=== PATIENT | male | born 1965 | race African-American/Black ===

== ENCOUNTER 2017-01-21 09:10 | Emergency (ER) | payer MEDICAID, OTHER ==
[~2017-01-21] VITALS: Ht 180.3 cm; Wt 99.0 kg
[2017-01-21 10:38] LABS: HEMATOCRIT. 35.5 % (42.0-52.0); HEMOGLOBIN. 10.6 g/dL (14.0-18.0); MEAN CORPUSCULAR HEMOGLOBIN 24.4 pg (28.0-32.0); MEAN CORPUSCULAR HGB CONC 29.9 g/dL (31.0-37.0); MEAN CORPUSCULAR VOLUME 81.7 fL (80.0-94.0); MEAN PLATELET VOLUME 7.6 fl (7.4-10.4); PLATELET 328 x1000/uL (130-400); RED BLOOD CELL COUNT 4.35 mill/uL (4.7-6.1); RED CELL DISTRIBUTION WIDTH 17.3 % (11.6-14.6)
[2017-01-21 10:42] LABS: DIFFERENTIAL COMMENT 1
[2017-01-21 10:51] LABS: ACETAMINOPHEN < 2 ug/mL (10-30); ALANINE AMINOTRANSFERASE 234 IU/L (13-61); ALBUMIN 3.9 g/dL (3.4-5.0); ANION GAP 20; CALCIUM 8.7 mg/dL (8.5-10.1); CARBON DIOXIDE 22 mEq/L (21-32); CHLORIDE 106 mEq/L (98-107); ETHANOL BLOOD < 10 mg/dL; INDEX HEMOLYSI 1 (1-3); INDEX ICTERIC 1 (1-4); INDEX LIPEMIC 1 (1-3); UREA NITROGEN BLOOD 18 mg/dL (7-21); eGFR > 60 mL/min (>60)
[2017-01-21 11:00] LABS: PLATELET ESTIMATE NORMAL
[2017-01-21 11:02] LABS: ANISOCYTOSIS 2+; HYPOCHROMASIA 1+
[2017-01-21 13:53] LABS: CLARITY URINE CLEAR (CLEAR); COLOR URINE YELLOW (YELLOW); GLUCOSE URINE 2+ (NEGATIVE); KETONES URINE NEGATIVE (NEGATIVE); LEUKOCYTE ESTERASE URINE NEGATIVE (NEGATIVE); NITRITE URINE NEGATIVE (NEGATIVE); OCCULT BLOOD URINE TRACE (NEGATIVE); PROTEIN URINE NEGATIVE (NEGATIVE); SPECIFIC GRAVITY URINE 1.019 (1.005-1.030)
[2017-01-21 14:09] LABS: *AMPHETAMINES SCREEN URINE NEGATIVE (NEGATIVE); *BARBITURATES SCREEN URINE NEGATIVE (NEGATIVE); *BENZODIAZEPINES SCREEN URINE NEGATIVE (NEGATIVE); *COCAINE SCREEN URINE NEGATIVE (NEGATIVE); BACTERIA URINE 1+; CANNABINOID URINE SCREEN PRESUMTIVE POSITIVE (NEGATIVE); ECSTASY MDMA SCREEN URINE CONF.TEST INDICATED (NEGATIVE); HYALINE CASTS URINE 0-5 /lpf; METHADONE URINE SCREEN NEGATIVE (NEGATIVE); OPIATES URINE SCREEN PRESUMTIVE POSITIVE (NEGATIVE); PHENCYCLIDINE URINE SCREEN NEGATIVE (NEGATIVE); RBC URINE 0-2 /hpf (0-2); SQUAMOUS EPITHELIAL CELL URINE RARE /lpf (RARE/1+); WBC URINE 0-2 /hpf (0-2)
[2017-01-21 14:10] LABS: FINE GRANULAR CASTS URINE 0-5 /lpf
[2017-01-21 17:39] VITALS: BP 131/65
== END 2017-01-21 18:49 | disposition home or self-care (01) ==
LOC: ER 09:25
DX: F32.9 Major depressive disorder, single episode, unspecified (principal); I10 Essential (primary) hypertension; R51 Headache; S02.2XXA Fracture of nasal bones, initial encounter for closed fracture; S00.03XA Contusion of scalp, initial encounter; M25.78 Osteophyte, vertebrae; F10.20 Alcohol dependence, uncomplicated; F11.10 Opioid abuse, uncomplicated; Y90.9 Presence of alcohol in blood, level not specified; F12.10 Cannabis abuse, uncomplicated; F19.10 Other psychoactive substance abuse, uncomplicated; F43.10 Post-traumatic stress disorder, unspecified
CPT/HCPCS: 36415; 70450; 70486; 71010; 72125; 80053; 80305; 80307; 80329; 81001; 85025; 93005; 99285; G0482; Z7610

== ENCOUNTER 2017-01-23 17:06 | Inpatient (IN) | payer MEDICAID, OTHER ==
[~2017-01-23] VITALS: Ht 177.8 cm; Wt 87.5 kg
[2017-01-23 22:01] LABS: HEMATOCRIT. 32.4 % (42.0-52.0); MEAN CORPUSCULAR HEMOGLOBIN 24.5 pg (28.0-32.0); MEAN CORPUSCULAR HGB CONC 30.9 g/dL (31.0-37.0); MEAN CORPUSCULAR VOLUME 79.4 fL (80.0-94.0); MEAN PLATELET VOLUME 8.1 fl (7.4-10.4); PLATELET 187 x1000/uL (130-400); RED BLOOD CELL COUNT 4.08 mill/uL (4.7-6.1); RED CELL DISTRIBUTION WIDTH 16.9 % (11.6-14.6); WHITE BLOOD COUNT 2.9 x1000/uL (4.5-11.0)
[2017-01-23 22:03] LABS: DIFFERENTIAL COMMENT 1
[2017-01-23 22:13] LABS: ACETAMINOPHEN < 2 ug/mL (10-30); ALBUMIN 3.3 g/dL (3.4-5.0); ANION GAP 18; CALCIUM 8.1 mg/dL (8.5-10.1); CARBON DIOXIDE 24 mEq/L (21-32); CHLORIDE 95 mEq/L (98-107); ETHANOL BLOOD < 10 mg/dL; INDEX HEMOLYSI 1 (1-3); INDEX ICTERIC 1 (1-4); INDEX LIPEMIC 1 (1-3); UREA NITROGEN BLOOD 31 mg/dL (7-21); eGFR 46 mL/min (>60)
[2017-01-23 22:20] LABS: ALANINE AMINOTRANSFERASE 1499 IU/L (13-61)
[2017-01-23 22:46] LABS: HYPOCHROMASIA 1+; NUCLEATED RED BLOOD CELLS 5 /100 WBC; PLATELET ESTIMATE NORMAL
[2017-01-23 22:47] LABS: ANISOCYTOSIS 1+
[2017-01-23 23:04] LABS: CLARITY URINE CLEAR (CLEAR); COLOR URINE DARK YELLOW (YELLOW); GLUCOSE URINE TRACE (NEGATIVE); KETONES URINE TRACE (NEGATIVE); LEUKOCYTE ESTERASE URINE NEGATIVE (NEGATIVE); NITRITE URINE NEGATIVE (NEGATIVE); OCCULT BLOOD URINE 2+ (NEGATIVE); PROTEIN URINE TRACE (NEGATIVE); SPECIFIC GRAVITY URINE 1.019 (1.005-1.030)
[2017-01-23 23:18] LABS: BACTERIA URINE 3+; RBC URINE 0-2 /hpf (0-2); SQUAMOUS EPITHELIAL CELL URINE NONE SEEN /lpf (RARE/1+); WBC URINE 0-2 /hpf (0-2)
[2017-01-23 23:25] LABS: *AMPHETAMINES SCREEN URINE NEGATIVE (NEGATIVE); *BARBITURATES SCREEN URINE NEGATIVE (NEGATIVE); *BENZODIAZEPINES SCREEN URINE NEGATIVE (NEGATIVE); *COCAINE SCREEN URINE NEGATIVE (NEGATIVE); CANNABINOID URINE SCREEN PRESUMTIVE POSITIVE (NEGATIVE); ECSTASY MDMA SCREEN URINE CONF.TEST INDICATED (NEGATIVE); METHADONE URINE SCREEN NEGATIVE (NEGATIVE); OPIATES URINE SCREEN PRESUMTIVE POSITIVE (NEGATIVE); PHENCYCLIDINE URINE SCREEN NEGATIVE (NEGATIVE)
[2017-01-24] MEDS ORDERED: DEXTROSE 50% WATER 50ML SYRINGE IV ONE
[2017-01-24] MEDS ORDERED: INSULIN REGULAR (HUMULIN R) 300UNITS/3ML IV ONE
[2017-01-24] MEDS ORDERED: ALBUTEROL (0.083%) 2.5MG/3ML NEB HHN ONE
[2017-01-24] MEDS ORDERED: ALBUTEROL (0.5%) 2.5MG/0.5ML NEB HHN ONE (01:48)
[2017-01-24 02:30] VITALS: BP 120/78
[2017-01-24] MEDS ORDERED: CETI10TA6 PO (03:25)
[2017-01-24] MEDS ORDERED: BUPR300T28 PO (03:32)
[2017-01-24] MEDS ORDERED: SERT-112 PO (03:32)
[2017-01-24] MEDS ORDERED: DIPH25CA83 PO (03:38)
[2017-01-24] MEDS ORDERED: MONT10TA24 PO (03:38)
[2017-01-24] MEDS ORDERED: ALBU18HF2 HHN (03:40)
[2017-01-24 04:00] VITALS: BP 120/78
[2017-01-24] MEDS ORDERED: DEXT 5%/0.45% NACL 1,000 ML IV SCH (04:00)
[2017-01-24] MEDS ORDERED: ONDANSETRON HCL 4MG/2ML VIAL IV PRN (04:00)
[2017-01-24] MEDS ORDERED: IBUPROFEN 200MG TABLET PO NR (04:00)
[2017-01-24 04:55] LABS: CLARITY URINE CLEAR (CLEAR); COLOR URINE YELLOW (YELLOW); GLUCOSE URINE TRACE (NEGATIVE); KETONES URINE TRACE (NEGATIVE); LEUKOCYTE ESTERASE URINE NEGATIVE (NEGATIVE); NITRITE URINE NEGATIVE (NEGATIVE); OCCULT BLOOD URINE 2+ (NEGATIVE); PH URINE 5.5 (4.5-8.0); PROTEIN URINE NEGATIVE (NEGATIVE); SPECIFIC GRAVITY URINE 1.018 (1.005-1.030)
[2017-01-24] MEDS ORDERED: PNEUMOCOCCAL 23-VAL P-SAC VAC 0.5 ML IM ONE (05:45)
[2017-01-24 05:53] LABS: BACTERIA URINE NONE SEEN; RBC URINE 0-2 /hpf (0-2); SQUAMOUS EPITHELIAL CELL URINE RARE /lpf (RARE/1+); WBC URINE 0-2 /hpf (0-2)
[2017-01-24] MEDS: TRAMADOL 50MG TABLET PO PRN (06:39)
[2017-01-24 07:22] LABS: BASOPHILS % 0.1 % (0.0-2.0); HEMATOCRIT. 28.9 % (42.0-52.0); HEMOGLOBIN. 9.3 g/dL (14.0-18.0); LYMPHOCYTES % 7.4 % (20.0-50.0); MEAN CORPUSCULAR HEMOGLOBIN 24.9 pg (28.0-32.0); MEAN CORPUSCULAR HGB CONC 32.1 g/dL (31.0-37.0); MEAN CORPUSCULAR VOLUME 77.4 fL (80.0-94.0); MEAN PLATELET VOLUME 8.4 fl (7.4-10.4); MONOCYTES % 11.3 % (2.0-8.0); NEUTROPHILS % 81.2 % (40.0-76.0); PLATELET 150 x1000/uL (130-400); RED BLOOD CELL COUNT 3.74 mill/uL (4.7-6.1); RED CELL DISTRIBUTION WIDTH 16.1 % (11.6-14.6); WHITE BLOOD COUNT 8.4 x1000/uL (4.5-11.0)
[2017-01-24 07:37] LABS: ALBUMIN 3.3 g/dL (3.4-5.0); ANION GAP 17; BILIRUBIN DIRECT 0.4 mg/dL (0.0-0.2); CALCIUM 8.2 mg/dL (8.5-10.1); CARBON DIOXIDE 23 mEq/L (21-32); CHLORIDE 96 mEq/L (98-107); INDEX HEMOLYSI 1 (1-3); INDEX ICTERIC 1 (1-4); INDEX LIPEMIC 1 (1-3); UREA NITROGEN BLOOD 28 mg/dL (7-21); eGFR > 60 mL/min (>60)
[2017-01-24 07:38] LABS: ALANINE AMINOTRANSFERASE 1306 IU/L (13-61)
[2017-01-24 07:48] LABS: DIFFERENTIAL COMMENT 1
[2017-01-24 08:00] VITALS: BP 128/90
[2017-01-24] MEDS ORDERED: CHLORDIAZEPOXIDE 25MG CAPSULE PO NR (08:45)
[2017-01-24] MEDS ORDERED: LORAZEPAM 2MG/ML CPJ IV PRN (08:45)
[2017-01-24] MEDS ORDERED: LACTULOSE 20G/30ML UDC PO NR (09:00)
[2017-01-24] MEDS: PANTOPRAZOLE SODIUM 40 MG/VIAL IV SCH (10:22)
[2017-01-24] MEDS: DEXT 5%/0.9% NACL 1,000 ML IV SCH (10:23)
[2017-01-24 11:26] LABS: HEPATITIS B SURFACE ANTIGEN NEGATIVE
[2017-01-24 11:54] LABS: HEPATITIS B CORE AB IGM NEGATIVE
[2017-01-24 11:55] LABS: HEPATITIS A AB IGM NEGATIVE (NEGATIVE)
[2017-01-24 12:00] VITALS: BP 117/79
[2017-01-24 13:17] LABS: HEPATITIS C VIR.AB > 11.00 INDEXVAL (0.00-0.80)
[2017-01-24 16:00] VITALS: BP 125/95
[2017-01-24 20:00] VITALS: BP 140/86
[2017-01-25] VITALS: BP 132/96
[2017-01-25] MEDS: DEXT 5%/0.9% NACL 1,000 ML IV SCH ×2 (02:01→17:49)
[2017-01-25 04:00] VITALS: BP 132/96
[2017-01-25 05:45] LABS: ALBUMIN 2.7 g/dL (3.4-5.0); CARBON DIOXIDE 25 mEq/L (21-32); CHLORIDE 102 mEq/L (98-107); INDEX HEMOLYSI 1 (1-3); INDEX ICTERIC 1 (1-4); INDEX LIPEMIC 1 (1-3); UREA NITROGEN BLOOD 16 mg/dL (7-21); eGFR > 60 mL/min (>60)
[2017-01-25 06:02] LABS: ALANINE AMINOTRANSFERASE 949 IU/L (13-61); ANION GAP 14; BILIRUBIN DIRECT 0.4 mg/dL (0.0-0.2); CALCIUM 7.8 mg/dL (8.5-10.1); MAGNESIUM 2.1 mg/dL (1.8-2.4)
[2017-01-25 06:12] LABS: PHOSPHORUS 0.7 mg/dL (2.5-4.9)
[2017-01-25] MEDS ORDERED: ACETAMINOPHEN 325MG TABLET PO PRN (06:30)
[2017-01-25 06:37] LABS: HEMATOCRIT. 28.3 % (42.0-52.0); HEMOGLOBIN. 9.1 g/dL (14.0-18.0); MEAN CORPUSCULAR HEMOGLOBIN 24.9 pg (28.0-32.0); MEAN CORPUSCULAR HGB CONC 32.2 g/dL (31.0-37.0); MEAN CORPUSCULAR VOLUME 77.3 fL (80.0-94.0); MEAN PLATELET VOLUME 8.2 fl (7.4-10.4); PLATELET 177 x1000/uL (130-400); RED BLOOD CELL COUNT 3.65 mill/uL (4.7-6.1); RED CELL DISTRIBUTION WIDTH 15.9 % (11.6-14.6); WHITE BLOOD COUNT 14.3 x1000/uL (4.5-11.0)
[2017-01-25] MEDS ORDERED: POTASSIUM PHOS,M-BASIC-D-BASIC 20 MMOL in DEXT 5% WATER 243.3333 ML IV SCH (07:00)
[2017-01-25 07:18] LABS: DIFFERENTIAL COMMENT 1
[2017-01-25 07:48] VITALS: BP 135/93
[2017-01-25] MEDS: PANTOPRAZOLE SODIUM 40 MG/VIAL IV SCH (08:24)
[2017-01-25] MEDS: TRAMADOL 50MG TABLET PO PRN (08:25)
[2017-01-25 09:35] LABS: ANISOCYTOSIS 1+; NUCLEATED RED BLOOD CELLS 2 /100 WBC; PLATELET ESTIMATE NORMAL
[2017-01-25] MEDS ORDERED: AZITHROMYCIN 500 MG TABLET PO SCH (09:45)
[2017-01-25 10:47] LABS: INDEX HEMOLYSI 1 (1-3)
[2017-01-25 10:52] LABS: CREATINE KINASE 1799 IU/L (39-308)
[2017-01-25 11:25] VITALS: BP 123/89
[2017-01-25] MEDS: LEVOFLOXACIN 500MG TABLET PO SCH (17:49)
[2017-01-26 00:05] VITALS: BP 125/80
[2017-01-26 04:00] VITALS: BP 127/84
[2017-01-26 06:37] LABS: HEMATOCRIT. 29.8 % (42.0-52.0); HEMOGLOBIN. 9.3 g/dL (14.0-18.0); MEAN CORPUSCULAR HEMOGLOBIN 24.2 pg (28.0-32.0); MEAN CORPUSCULAR HGB CONC 31.2 g/dL (31.0-37.0); MEAN CORPUSCULAR VOLUME 77.6 fL (80.0-94.0); MEAN PLATELET VOLUME 8.3 fl (7.4-10.4); PLATELET 202 x1000/uL (130-400); RED BLOOD CELL COUNT 3.85 mill/uL (4.7-6.1); RED CELL DISTRIBUTION WIDTH 15.6 % (11.6-14.6); WHITE BLOOD COUNT 18.4 x1000/uL (4.5-11.0)
[2017-01-26 07:01] LABS: DIFFERENTIAL COMMENT 1
[2017-01-26 07:31] LABS: ALANINE AMINOTRANSFERASE 673 IU/L (13-61); ALBUMIN 2.4 g/dL (3.4-5.0); ANION GAP 15; BILIRUBIN DIRECT 0.4 mg/dL (0.0-0.2); CALCIUM 7.9 mg/dL (8.5-10.1); CARBON DIOXIDE 25 mEq/L (21-32); CHLORIDE 101 mEq/L (98-107); INDEX HEMOLYSI 1 (1-3); INDEX ICTERIC 1 (1-4); INDEX LIPEMIC 1 (1-3); MAGNESIUM 1.9 mg/dL (1.8-2.4); PHOSPHORUS 1.3 mg/dL (2.5-4.9); UREA NITROGEN BLOOD 11 mg/dL (7-21); eGFR > 60 mL/min (>60)
[2017-01-26 08:00] VITALS: BP 126/78
[2017-01-26] MEDS ORDERED: LACTULOSE 20G/30ML UDC PO NR (09:30)
[2017-01-26 09:43] LABS: PLATELET ESTIMATE NORMAL
[2017-01-26 09:44] LABS: ANISOCYTOSIS 1+
[2017-01-26] MEDS ORDERED: SODIUM PHOS,M-BASIC-D-BASIC 10 MM in DEXT 5% WATER 246.6667 ML IV ONE (10:00)
[2017-01-26] MEDS: LEVOFLOXACIN 500MG TABLET PO SCH (10:29)
[2017-01-26] MEDS: ARIPIPRAZOLE 15MG TABLET PO SCH (10:29)
[2017-01-26] MEDS: SERTRALINE HCL 100MG TABLET PO SCH (10:29)
[2017-01-26] MEDS: PANTOPRAZOLE SODIUM 40 MG/VIAL IV SCH (10:29)
[2017-01-26] MEDS: BUPROPION HCL 150MG TABLET XL 24HR PO SCH (10:29)
[2017-01-26] MEDS: BUSPIRONE HCL 5MG TABLET PO SCH ×3 (11:30→18:25)
[2017-01-26] MEDS: DEXT 5%/0.9% NACL 1,000 ML IV SCH ×2 (11:33→22:53)
[2017-01-26 12:00] VITALS: BP 116/84
[2017-01-26] MEDS: DOCUSATE SODIUM SUGAR FREE 100MG/10ML UDC NG SCH ×2 (13:45→17:00)
[2017-01-26 16:00] VITALS: BP 123/85
[2017-01-26 20:00] VITALS: BP 130/89
[2017-01-27] VITALS: BP 131/88
[2017-01-27 04:00] VITALS: BP 124/91
[2017-01-27 07:07] LABS: HEMATOCRIT. 30.3 % (42.0-52.0); HEMOGLOBIN. 9.5 g/dL (14.0-18.0); MEAN CORPUSCULAR HGB CONC 31.5 g/dL (31.0-37.0); MEAN CORPUSCULAR VOLUME 76.3 fL (80.0-94.0); MEAN PLATELET VOLUME 8.3 fl (7.4-10.4); PLATELET 195 x1000/uL (130-400); RED BLOOD CELL COUNT 3.98 mill/uL (4.7-6.1); RED CELL DISTRIBUTION WIDTH 15.5 % (11.6-14.6)
[2017-01-27 07:29] LABS: DIFFERENTIAL COMMENT 1
[2017-01-27 07:38] LABS: ALANINE AMINOTRANSFERASE 458 IU/L (13-61); ALBUMIN 2.3 g/dL (3.4-5.0); ANION GAP 13; BILIRUBIN DIRECT 0.2 mg/dL (0.0-0.2); CALCIUM 8.4 mg/dL (8.5-10.1); CARBON DIOXIDE 23 mEq/L (21-32); CHLORIDE 106 mEq/L (98-107); CREATINE KINASE 187 IU/L (39-308); INDEX HEMOLYSI 1 (1-3); INDEX ICTERIC 1 (1-4); INDEX LIPEMIC 1 (1-3); PHOSPHORUS 3.2 mg/dL (2.5-4.9); UREA NITROGEN BLOOD 12 mg/dL (7-21); eGFR > 60 mL/min (>60)
[2017-01-27 07:59] VITALS: BP 127/85
[2017-01-27] MEDS: PANTOPRAZOLE SODIUM 40 MG/VIAL IV SCH (08:38)
[2017-01-27] MEDS: BUPROPION HCL 150MG TABLET XL 24HR PO SCH (08:39)
[2017-01-27] MEDS: SERTRALINE HCL 100MG TABLET PO SCH (08:39)
[2017-01-27] MEDS: BUSPIRONE HCL 5MG TABLET PO SCH ×3 (08:39→17:01)
[2017-01-27] MEDS: LEVOFLOXACIN 500MG TABLET PO SCH (08:39)
[2017-01-27] MEDS: DOCUSATE SODIUM SUGAR FREE 100MG/10ML UDC NG SCH ×2 (08:39→17:01)
[2017-01-27] MEDS: ARIPIPRAZOLE 15MG TABLET PO SCH (08:39)
[2017-01-27 12:00] VITALS: BP 128/85
[2017-01-27] MEDS ORDERED: POTASSIUM CHLORIDE INJ 40 MEQ in DEXT 5% WATER 250 ML IV NR (13:30)
[2017-01-27 13:54] LABS: HYPOCHROMASIA 1+; PLATELET ESTIMATE NORMAL
[2017-01-27 13:55] LABS: ANISOCYTOSIS 1+
[2017-01-27] MEDS: DEXT 5%/0.9% NACL 1,000 ML IV SCH (15:22)
[2017-01-27 16:00] VITALS: BP 121/83
[2017-01-27 20:00] VITALS: BP 124/87
[2017-01-28] VITALS: BP 127/86
[2017-01-28 04:00] VITALS: BP 126/87
[2017-01-28 08:08] VITALS: BP 125/85
[2017-01-28] MEDS: DOCUSATE SODIUM SUGAR FREE 100MG/10ML UDC NG SCH ×2 (09:00→17:07)
[2017-01-28] MEDS: GUAIFENESIN 200MG/10ML SUGAR FREE UDC PO PRN ×3 (09:03→20:15)
[2017-01-28] MEDS: LEVOFLOXACIN 500MG TABLET PO SCH (09:05)
[2017-01-28] MEDS: BUSPIRONE HCL 5MG TABLET PO SCH ×3 (09:05→17:08)
[2017-01-28] MEDS: SERTRALINE HCL 100MG TABLET PO SCH (09:05)
[2017-01-28] MEDS: BUPROPION HCL 150MG TABLET XL 24HR PO SCH (09:05)
[2017-01-28] MEDS: PANTOPRAZOLE SODIUM 40 MG/VIAL IV SCH (09:06)
[2017-01-28] MEDS: ARIPIPRAZOLE 15MG TABLET PO SCH (09:06)
[2017-01-28] MEDS: DEXT 5%/0.9% NACL 1,000 ML IV SCH ×3 (09:09→23:27)
[2017-01-28 09:50] LABS: HEMATOCRIT 31.1 % (42.0-52.0); HEMOGLOBIN 9.7 g/dL (14.0-18.0); MEAN CORPUSCULAR HEMOGLOBIN 23.7 pg (28.0-32.0); MEAN CORPUSCULAR HGB CONC 31.3 g/dL (31.0-37.0); MEAN CORPUSCULAR VOLUME 75.8 fL (80.0-94.0); PLATELET 203 x1000/uL (130-400); RED BLOOD CELL COUNT 4.11 mill/uL (4.7-6.1); RED CELL DISTRIBUTION WIDTH 15.5 % (11.6-14.6); WHITE BLOOD COUNT 12.9 x1000/uL (4.5-11.0)
[2017-01-28 10:14] LABS: ALANINE AMINOTRANSFERASE 372 IU/L (13-61); ALBUMIN 2.2 g/dL (3.4-5.0); ANION GAP 16; BILIRUBIN DIRECT 0.2 mg/dL (0.0-0.2); CALCIUM 8.5 mg/dL (8.5-10.1); CARBON DIOXIDE 21 mEq/L (21-32); CHLORIDE 105 mEq/L (98-107); INDEX HEMOLYSI 1 (1-3); INDEX ICTERIC 1 (1-4); INDEX LIPEMIC 1 (1-3); UREA NITROGEN BLOOD 9 mg/dL (7-21); eGFR > 60 mL/min (>60)
[2017-01-28 12:00] VITALS: BP 127/78
[2017-01-28 16:17] VITALS: BP 122/86
[2017-01-28 19:55] VITALS: BP 120/75
[2017-01-29] VITALS: BP 125/81
[2017-01-29 03:54] VITALS: BP 121/75
[2017-01-29 06:36] LABS: HEMATOCRIT. 31.9 % (42.0-52.0); HEMOGLOBIN. 9.7 g/dL (14.0-18.0); MEAN CORPUSCULAR HEMOGLOBIN 23.9 pg (28.0-32.0); MEAN CORPUSCULAR HGB CONC 30.4 g/dL (31.0-37.0); MEAN CORPUSCULAR VOLUME 78.4 fL (80.0-94.0); MEAN PLATELET VOLUME 8.4 fl (7.4-10.4); PLATELET 206 x1000/uL (130-400); RED BLOOD CELL COUNT 4.07 mill/uL (4.7-6.1); RED CELL DISTRIBUTION WIDTH 16.1 % (11.6-14.6); WHITE BLOOD COUNT 12.4 x1000/uL (4.5-11.0)
[2017-01-29 06:54] LABS: DIFFERENTIAL COMMENT 1
[2017-01-29 07:01] LABS: ALANINE AMINOTRANSFERASE 285 IU/L (13-61); ANION GAP 13; BILIRUBIN DIRECT 0.2 mg/dL (0.0-0.2); CALCIUM 8.4 mg/dL (8.5-10.1); CARBON DIOXIDE 19 mEq/L (21-32); CHLORIDE 112 mEq/L (98-107); INDEX HEMOLYSI 2 (1-3); INDEX ICTERIC 1 (1-4); INDEX LIPEMIC 1 (1-3); MAGNESIUM 1.9 mg/dL (1.8-2.4); UREA NITROGEN BLOOD 8 mg/dL (7-21); eGFR > 60 mL/min (>60)
[2017-01-29 08:00] VITALS: BP 116/78
[2017-01-29] MEDS: BUPROPION HCL 150MG TABLET XL 24HR PO SCH (08:05)
[2017-01-29] MEDS: ARIPIPRAZOLE 15MG TABLET PO SCH (08:05)
[2017-01-29] MEDS: LEVOFLOXACIN 500MG TABLET PO SCH (08:05)
[2017-01-29] MEDS: GUAIFENESIN 200MG/10ML SUGAR FREE UDC PO PRN (08:05)
[2017-01-29] MEDS: SERTRALINE HCL 100MG TABLET PO SCH (08:06)
[2017-01-29] MEDS: BUSPIRONE HCL 5MG TABLET PO SCH ×3 (08:06→16:29)
[2017-01-29] MEDS: DOCUSATE SODIUM SUGAR FREE 100MG/10ML UDC NG SCH ×2 (08:07→16:29)
[2017-01-29] MEDS: PANTOPRAZOLE SODIUM 40 MG/VIAL IV SCH (08:07)
[2017-01-29] MEDS ORDERED: IPRATROPIUM/ALBUTEROL 0.5-3(2.5)MG/3ML NEB HHN PRN (11:15)
[2017-01-29 12:00] VITALS: BP 114/79
[2017-01-29] MEDS: DEXT 5%/0.9% NACL 1,000 ML IV SCH ×2 (12:14→20:24)
[2017-01-29 12:32] LABS: PLATELET ESTIMATE NORMAL
[2017-01-29 12:33] LABS: ANISOCYTOSIS 1+
[2017-01-29 16:00] VITALS: BP 118/79
[2017-01-29 20:00] VITALS: BP 125/77
[2017-01-29] MEDS: GUAIFENESIN 600MG ER TABLET PO SCH (20:24)
[2017-01-30] VITALS: BP 113/64
[2017-01-30 04:00] VITALS: BP 129/81
[2017-01-30 07:30] LABS: BASOPHILS % 0.6 % (0.0-2.0); DIFFERENTIAL COMMENT 0; EOSINOPHILS % 1.2 % (0.0-5.0); HEMATOCRIT. 29.8 % (42.0-52.0); HEMOGLOBIN. 9.4 g/dL (14.0-18.0); LYMPHOCYTES % 11.3 % (20.0-50.0); MEAN CORPUSCULAR HGB CONC 31.6 g/dL (31.0-37.0); MEAN CORPUSCULAR VOLUME 75.8 fL (80.0-94.0); MEAN PLATELET VOLUME 8.3 fl (7.4-10.4); MONOCYTES % 13.1 % (2.0-8.0); NEUTROPHILS % 73.8 % (40.0-76.0); PLATELET 278 x1000/uL (130-400); RED BLOOD CELL COUNT 3.93 mill/uL (4.7-6.1); RED CELL DISTRIBUTION WIDTH 15.5 % (11.6-14.6); WHITE BLOOD COUNT 13.6 x1000/uL (4.5-11.0)
[2017-01-30 07:41] LABS: ALANINE AMINOTRANSFERASE 241 IU/L (13-61); ALBUMIN 2.3 g/dL (3.4-5.0); ANION GAP 14; BILIRUBIN DIRECT 0.2 mg/dL (0.0-0.2); CARBON DIOXIDE 21 mEq/L (21-32); CHLORIDE 106 mEq/L (98-107); INDEX HEMOLYSI 1 (1-3); INDEX ICTERIC 1 (1-4); INDEX LIPEMIC 1 (1-3); MAGNESIUM 1.9 mg/dL (1.8-2.4); PHOSPHORUS 2.8 mg/dL (2.5-4.9); UREA NITROGEN BLOOD 8 mg/dL (7-21); eGFR > 60 mL/min (>60)
[2017-01-30 07:46] LABS: CALCIUM 8.7 mg/dL (8.5-10.1)
[2017-01-30 08:00] VITALS: BP 111/65
[2017-01-30] MEDS: BUPROPION HCL 150MG TABLET XL 24HR PO SCH (08:44)
[2017-01-30] MEDS: SERTRALINE HCL 100MG TABLET PO SCH (08:45)
[2017-01-30] MEDS: ARIPIPRAZOLE 15MG TABLET PO SCH (08:45)
[2017-01-30] MEDS: LEVOFLOXACIN 500MG TABLET PO SCH (08:45)
[2017-01-30] MEDS: GUAIFENESIN 600MG ER TABLET PO SCH (08:45)
[2017-01-30] MEDS: BUSPIRONE HCL 5MG TABLET PO SCH ×2 (08:46→12:14)
[2017-01-30] MEDS: PANTOPRAZOLE SODIUM 40 MG/VIAL IV SCH (08:46)
[2017-01-30] MEDS: DOCUSATE SODIUM SUGAR FREE 100MG/10ML UDC NG SCH (08:46)
[2017-01-30] MEDS: DEXT 5%/0.9% NACL 1,000 ML IV SCH (08:54)
[2017-01-30 12:00] VITALS: BP 115/72
[2017-01-30 14:57] VITALS: BP 115/72
[2017-01-30 16:00] VITALS: BP 114/68
== END 2017-01-30 18:15 | disposition home or self-care (01) | DRG 816 ==
LOC: ER 17:06 → 8WST 01-24 00:45
PROVIDERS: ADMIT Family Medicine Adult Medicine; ATTEND Family Medicine Adult Medicine
DX: T40.1X2A Poisoning by heroin, intentional self-harm, initial encounter (principal); N17.9 Acute kidney failure, unspecified; J18.9 Pneumonia, unspecified organism; S09.90XA Unspecified injury of head, initial encounter; T40.7X2A Poisoning by cannabis (derivatives), intentional self-harm, initial encounter; E44.1 Mild protein-calorie malnutrition; E87.1 Hypo-osmolality and hyponatremia; F32.9 Major depressive disorder, single episode, unspecified; F25.9 Schizoaffective disorder, unspecified; F17.210 Nicotine dependence, cigarettes, uncomplicated; F10.20 Alcohol dependence, uncomplicated; E87.5 Hyperkalemia; R74.0 Nonspecific elevation of levels of transaminase and lactic acid dehydrogenase [LDH]; B19.20 Unspecified viral hepatitis C without hepatic coma; D64.9 Anemia, unspecified; Z68.27 Body mass index [BMI] 27.0-27.9, adult; Y92.89 Other specified places as the place of occurrence of the external cause; Y93.89 Activity, other specified; Y99.8 Other external cause status
CPT/HCPCS: 36415; 71010; 76700; 80048; 80053; 80076; 80305; 80307; 80329; 81001; 82550; 83735; 84100; 85025; 85027; 86705; 86709; 86803; 87040; 87070; 87086; 87340; 87536; 90732; 93970; 96374; 96375; 97161; 99285; C1893; C9113; G0482; J1815; J3480; J3490; J7042; J7060; J7611